=== PATIENT | female | born 1995 | race Caucasian/White ===

== ENCOUNTER 2017-12-14 12:41 | Emergency (ER) | payer OTHER ==
[~2017-12-14 12:41] MED LIST: CEP500 PO; LOR5/325 PO
--- NOTE | 2017-12-14 12:52 | ER Report ---
History and Physical Time Seen By MD: 12:50 Hx. of Stated Complaint: PATIENT HAS BEEN HAVING ABDOMINAL CRAMPING FOR THE LAST WEEK. HPI/ROS CHIEF COMPLAINT: Abdominal cramping HISTORY OF PRESENT ILLNESS: This is a 22-year-old female who presents to the emergency department for generalized abdominal cramping. Patient states that about 5 days ago she developed some abdominal cramps in addition to this she developed diarrhea with some nausea. Patient also states that the cramping and intensity of the diarrhea has increased over the last several days. She was evaluated by an urgent care in [place], they did a basic workup, told patient there was no "white count for urinary infection". The patient was instructed to continue to monitor and if the pain and intensity seems to increase then go to the emergency department for further evaluation and consideration of a CT of the abdomen. Patient denies blood in the stool or infrequent emesis. Patient denies fevers or chills, no visual changes, no headaches. REVIEW OF SYSTEMS: Constitutional: No fever, no chills. Eyes: No discharge. ENT: No sore throat. Cardiovascular: No chest pain, no palpitations. Respiratory: No cough, no shortness of breath. Gastrointestinal: As above. Genitourinary: No hematuria. Musculoskeletal: No back pain. Skin: No rashes. Neurological: No headache. Allergies: Coded Allergies: No Known Drug Allergies (Unverified , 12/14/17) Home Meds Active Scripts Ondansetron (ZOFRAN ODT) 4 Mg Tab.rapdis, 4 MG PO Q6H Y for NAUSEA/VOMITING, # 20 TAB.GALINA Prov:FISH DALY [facility]- 12/14/17 Phenobarb/Hyoscy/Atropine/Scop ( TABLET) 16.2 Mg Tablet, 16.2 MG PO Q6- 8H Y for prn, #12 TAB 0 Refills Prov:FISH DALY [facility]- 12/14/17 Reported Medications Sertraline Hcl (ZOLOFT) 100 Mg Tablet, 1 TAB PO QDAY, TAB 12/14/17 Bupropion Hcl (WELLBUTRIN XL) 150 Mg Tab.er.24h, 150 MG PO QDAY, TAB 12/14/17 Cephalexin Monohydrate (Keflex) 500 Mg Cap, 500 MG PO QID, #12 0 Refills 02/07/11 Acetaminophen/Hydrocodone (Lortab 5/325 Mg) 5 Mg/325 Mg Tab, 1 TAB PO Q4-6H Y, # 40 0 Refills 02/07/11 Past Medical/Surgical History Patient has a past medical and surgical history of depression and anxiety. Reviewed Nurses Notes: Yes Constitutional Vital Sign - Last 24 Hours 12/14/17 12/14/17 12/14/17 12/14/17 12:46 13:11 13:13 13:14 Temp 99.3 Pulse 78 75 Resp 20 B/P (MAP) 115/81 111/73 (86) 112/67 (82) Pulse Ox 96 96 O2 Delivery Room Air 12/14/17 12/14/17 12/14/17 12/14/17 13:30 13:41 14:00 14:11 Pulse 79 84 B/P (MAP) 104/48 (66) 100/55 (70) Pulse Ox 96 96 12/14/17 12/14/17 14:30 14:35 Pulse 72 B/P (MAP) 98/51 (67) Pulse Ox 95 Intake and Output 12/14/17 12/14/17 12/15/17 14:59 22:59 06:59 Intake Total 2000 ml Balance 2000 ml Physical Exam General Appearance: The patient is alert, has no immediate need for airway protection and no signs of toxicity, eyes closed appears uncomfortable. Eyes: Pupils equal and round no pallor or injection. ENT, Mouth: Mucous membranes are dry. Left anterior cervical chain lymphadenopathy. Tympanic membranes intact, landmarks noted, pearly ulloa bilaterally. Respiratory: There are no retractions, lungs are clear to auscultation. Cardiovascular: Regular rate and rhythm, no murmurs, clicks or rubs. Gastrointestinal: Abdomen is soft and generalized mild tenderness with palpation, no masses, hypoactive bowel sounds. Neurological: Alert and oriented 4. Moving all extremities. Following all commands. No focal neuro deficits. Skin: Warm and dry, no rashes. Musculoskeletal: Neck is supple non tender. Extremities are nontender, nonswollen and have full range of motion. DIFFERENTIAL DIAGNOSIS: After history and physical exam differential diagnosis for abdominal pain in a female including but not limited to ovarian cyst, pelvic inflammatory disease, ovarian torsion, gastroenteritis, urinary tract infection, and appendicitis. Medical Decision Making Data Points Result Diagram: 12/14/17 1305 12/14/17 1305 Laboratory Hematology Test 12/14/17 12:45 12/14/17 13:05 Urine Color Yellow Urine Clarity Cloudy Urine pH 5.0 pH (4.8-9.5) Urine Specific [place] 1.017 Urine Protein Negative mg/dL (NEGATIVE) Urine Glucose (UA) Negative mg/dL (NEGATIVE) Urine Ketones Trace mg/dL (NEGATIVE) Urine Blood Negative (NEGATIVE) Urine Nitrite Negative (NEGATIVE) Urine Bilirubin Negative (NEGATIVE) Urine Urobilinogen Negative mg/dL (0.2-1.9) Urine Leukocyte Esterase Negative (NEGATIVE) Urine RBC 1 /HPF (0-2/HPF) Urine WBC 5 /HPF (0-5/HPF) Urine Squamous Epithelial Cells Many /LPF (</=FEW) Urine Bacteria Negative /HPF (NONE-FEW) Urine Mucus Few /HPF (NONE-FEW) Red Blood Count 5.25 M/uL (4.17-5.56) Mean Corpuscular Volume 86.9 fL (80.0-96.0) Mean Corpuscular Hemoglobin 30.2 pg (26.0-33.0) Mean Corpuscular Hemoglobin Concent 34.7 g/dL (32.0-36.0) Red Cell Distribution Width 12.7 % (11.5-14.5) Mean Platelet Volume 7.9 fL (7.2-11.1) Neutrophils (%) (Auto) 66.5 % (39.4-72.5) Lymphocytes (%) (Auto) 22.0 % (17.6-49.6) Monocytes (%) (Auto) 11.0 % (4.1-12.4) Eosinophils (%) (Auto) 0.0 % (0.4-6.7) Basophils (%) (Auto) 0.5 % (0.3-1.4) Nucleated RBC Relative Count (auto) 0.1 /100WBC Neutrophils # (Auto) 2.5 K/uL (2.0-7.4) Lymphocytes # (Auto) 0.8 K/uL (1.3-3.6) Monocytes # (Auto) 0.4 K/uL (0.3-1.0) Eosinophils # (Auto) 0.0 K/uL (0.0-0.5) Basophils # (Auto) 0.0 K/uL (0.0-0.1) Nucleated RBC Absolute Count (auto) 0.00 K/uL Sodium Level 140 mmol/L (137-145) Potassium Level 3.8 mmol/L (3.5-5.0) Chloride Level 103 mmol/L (98-107) Carbon Dioxide Level 23 mmol/L (22-31) Blood Urea Nitrogen 8 mg/dl (7-18) Creatinine 0.90 mg/dl (0.52-1.04) Glomerular Filtration Rate Calc > 60.0 Random Glucose 91 mg/dl (75-110) Calcium Level 9.0 mg/dl (8.4-10.2) Total Bilirubin 0.3 mg/dl (0.2-1.3) Aspartate Amino Transf (AST/SGOT) 23 U/L (0-35) Alanine Aminotransferase (ALT/SGPT) 27 U/L (0-56) Alkaline Phosphatase 58 U/L (0-126) Total Protein 7.5 gm/dl (6.3-8.2) Albumin 4.2 g/dl (3.5-5.0) Lipase 108 U/L (23-300) Human Chorionic Gonadotropin, Qual Negative (NEGATIVE) Chemistry Test 12/14/17 12:45 12/14/17 13:05 Urine Color Yellow Urine Clarity Cloudy Urine pH 5.0 pH (4.8-9.5) Urine Specific [place] 1.017 Urine Protein Negative mg/dL (NEGATIVE) Urine Glucose (UA) Negative mg/dL (NEGATIVE) Urine Ketones Trace mg/dL (NEGATIVE) Urine Blood Negative (NEGATIVE) Urine Nitrite Negative (NEGATIVE) Urine Bilirubin Negative (NEGATIVE) Urine Urobilinogen Negative mg/dL (0.2-1.9) Urine Leukocyte Esterase Negative (NEGATIVE) Urine RBC 1 /HPF (0-2/HPF) Urine WBC 5 /HPF (0-5/HPF) Urine Squamous Epithelial Cells Many /LPF (</=FEW) Urine Bacteria Negative /HPF (NONE-FEW) Urine Mucus Few /HPF (NONE-FEW) White Blood Count 3.7 k/uL (4.5-11.0) Red Blood Count 5.25 M/uL (4.17-5.56) Hemoglobin 15.8 g/dL (12.0-16.0) Hematocrit 45.6 % (34.0-47.0) Mean Corpuscular Volume 86.9 fL (80.0-96.0) Mean Corpuscular Hemoglobin 30.2 pg (26.0-33.0) Mean Corpuscular Hemoglobin Concent 34.7 g/dL (32.0-36.0) Red Cell Distribution Width 12.7 % (11.5-14.5) Platelet Count 173 K/uL (150-450) Mean Platelet Volume 7.9 fL (7.2-11.1) Neutrophils (%) (Auto) 66.5 % (39.4-72.5) Lymphocytes (%) (Auto) 22.0 % (17.6-49.6) Monocytes (%) (Auto) 11.0 % (4.1-12.4) Eosinophils (%) (Auto) 0.0 % (0.4-6.7) Basophils (%) (Auto) 0.5 % (0.3-1.4) Nucleated RBC Relative Count (auto) 0.1 /100WBC Neutrophils # (Auto) 2.5 K/uL (2.0-7.4) Lymphocytes # (Auto) 0.8 K/uL (1.3-3.6) Monocytes # (Auto) 0.4 K/uL (0.3-1.0) Eosinophils # (Auto) 0.0 K/uL (0.0-0.5) Basophils # (Auto) 0.0 K/uL (0.0-0.1) Nucleated RBC Absolute Count (auto) 0.00 K/uL Glomerular Filtration Rate Calc > 60.0 Calcium Level 9.0 mg/dl (8.4-10.2) Total Bilirubin 0.3 mg/dl (0.2-1.3) Aspartate Amino Transf (AST/SGOT) 23 U/L (0-35) Alanine Aminotransferase (ALT/SGPT) 27 U/L (0-56) Alkaline Phosphatase 58 U/L (0-126) Total Protein 7.5 gm/dl (6.3-8.2) Albumin 4.2 g/dl (3.5-5.0) Lipase 108 U/L (23-300) Human Chorionic Gonadotropin, Qual Negative (NEGATIVE) Urinalysis Test 12/14/17 12:45 Urine Color Yellow Urine Clarity Cloudy Urine pH 5.0 pH (4.8-9.5) Urine Specific [place] 1.017 Urine Protein Negative mg/dL (NEGATIVE) Urine Glucose (UA) Negative mg/dL (NEGATIVE) Urine Ketones Trace mg/dL (NEGATIVE) Urine Blood Negative (NEGATIVE) Urine Nitrite Negative (NEGATIVE) Urine Bilirubin Negative (NEGATIVE) Urine Urobilinogen Negative mg/dL (0.2-1.9) Urine Leukocyte Esterase Negative (NEGATIVE) Urine RBC 1 /HPF (0-2/HPF) Urine WBC 5 /HPF (0-5/HPF) Urine Squamous Epithelial Cells Many /LPF (</=FEW) Urine Bacteria Negative /HPF (NONE-FEW) Urine Mucus Few /HPF (NONE-FEW) ED Course/Re-evaluation Clinical Indication for ER IV: Hydration, IV Access ED Course The patient was admitted to a room. A history physical were obtained. Differential diagnoses were considered. An IV was started. A CBC, CMP, lipase and UA were obtained. A 1 L normal saline bolus was given 2, 40 mg IV Protonix , 4 mg IV Zofran.GI cocktail. CBC white count of 3.7 otherwise unremarkable, chemistry unremarkable negative hCG negative urine. I did review the results with the patient and did tell her that this is likely a gastroenteritis, patient did state that she has improved pain after the fluids and the Protonix and Zofran as well as a GI cocktail. I did to the patient extensively about a CT scan of the abdomen and pelvis, at this time we elected to hold off on the CT. I was unable to collect stool samples here however I did send a prescription home for stool studies. If the patient has not seen any improvement in her symptoms with slowing of the diarrhea and the next 4-6 days the patient will return for reevaluation and consideration of a CT. Patient was in agreement with his chronic care. Patient had no other questions or concerns at this time and was discharged home. Patient was sent home with a prescription for Zofran and , however the pharmacy did call and the is too expensife, the prescription was changed to bentyl. 12/14/2017 1:58:02 pm I did speak with patient regarding her laboratory studies and UA did tell her that these are unremarkable and that we can try another liter of fluid and a GI cocktail and if no stools collected in the ER we can send her home with a collection kit. Patient has agreement with this she is also in agreement with waiting on the CT scan, if there is no improvement in the next 4-6 days and she will return for any consideration of CT. Decision to Disposition Date: Dec 14, 2017 Decision to Disposition Time: 14:49 Depart Departure Latest Vital Signs Vital Signs Date Time Temp Pulse Resp B/P (MAP) Pulse Ox O2 Delivery O2 Flow Rate FiO2 12/14/17 14:35 72 95 12/14/17 14:30 98/51 (67) 12/14/17 12:46 99.3 20 Room Air Impression: Primary Impression: Gastroenteritis Condition: Improved Disposition: HOME OR SELF-CARE New Scripts Ondansetron (ZOFRAN ODT) 4 Mg Tab.rapdis 4 MG PO Q6H Y for NAUSEA/VOMITING, #20 TAB.GALINA Prov: FISH DALYP- 12/14/17 Phenobarb/Hyoscy/Atropine/Scop ( TABLET) 16.2 Mg Tablet 16.2 MG PO Q6-8H Y for prn, #12 TAB 0 Refills Prov: FISH DALY [employer]- 12/14/17 Departure Forms: ER Transition Record, Medications Reconciliation, Off Work/ School Form, School or Work Release?: Work Number of days to be released: 2 Patient Portal Information Patient Instructions: Gastroenteritis (ED) Additional Instructions: Drink plenty of fluids. Get plenty of rest. Take the medications as prescribed. If you collect a stool sample please return to the admitting area and tell them you have a lab sample. If no improvement in 4-6 days them please return to the ED for consideration of a CT scan. If your stool is concerning we will contact you. Return to the ED for any other concerns or worsening symptoms. FISH DALY [employer]-BC Dec 14, 2017 12:52
[2017-12-14] MEDS ORDERED: PANTOPRAZOLE SOD 40 MG IV VIAL IVP ONE (13:00)
[2017-12-14] MEDS ORDERED: NS(*) 0.9% 1000 ML BAG 1,000 ML IV ONE ×2 (13:00→13:50)
[2017-12-14] MEDS ORDERED: ONDANSETRON 4 MG/2 ML VIAL IVP ONE (13:00)
[2017-12-14] MEDS ORDERED: BUPR-472 PO (13:04)
[2017-12-14] MEDS ORDERED: SERT-173 PO (13:04)
[2017-12-14 13:17] LABS: PLATELET COUNT, AUTOMATED 173 K/uL (150-450)
[2017-12-14] MEDS ORDERED: ATRO/SCOPOL/HYOSCY/PB 5 ML ELX PO ONE (13:50)
[2017-12-14] MEDS ORDERED: MAG HYD/AL HYD/SIMETH 30ML UDC PO ONE (13:50)
[2017-12-14] MEDS ORDERED: LIDOCAINE 2% VISC SLN 15ML UDC PO ONE (13:50)
[2017-12-14 14:30] VITALS: BP 98/51
[2017-12-14] MEDS ORDERED: ONDA4TAB PO (14:53)
[2017-12-14] MEDS ORDERED: PHEN16.215 PO (14:53)
== END 2017-12-14 15:10 | disposition home or self-care (01) ==
LOC: ER 12:44
DX: K52.9 Noninfective gastroenteritis and colitis, unspecified (principal)
CPT/HCPCS: 81001; 83690; 84703; 85025; 96361; 96374; 96375; 99284; C9113; J2405; J7030; 82040; 82247; 82310; 82374; 82435; 82565; 82947; 84075; 84132; 84155; 84295; 84450; 84460; 84520

== ENCOUNTER 2018-12-21 15:11 | Day surgery (SDC) | payer OTHER ==
[~2018-12-21 15:11] MED LIST changes: -IOPAMIDOL 76% 100 ML INFUS BTL 100 ML ONE; -IUD; -TRAM-420 PO
[2018-12-21] MEDS ORDERED: IUD (15:33)
--- NOTE | 2018-12-21 15:54 | ER Report ---
History and Physical Time Seen By MD: 15:48 Hx. of Stated Complaint: ABD PAIN STARTED LAST NIGHT, POSSIBLE APPENDICITIS, NAUSEA HPI/ROS CHIEF COMPLAINT: Abdominal pain HISTORY OF PRESENT ILLNESS: This is a 23-year-old female presents to emergency department for abdominal pain. Patient states that last when she developed some right sided abdominal pain, increasing over the course of today, went to urgent care, an outpatient CT scan concerning for possible appendicitis. Patient was sent to the emergency department for further evaluation. Patient was seen by Dr. Shannon. The patient had no other concerns at this time. No fevers. No chills. No chest pain or shortness breath. REVIEW OF SYSTEMS: Respiratory: No cough, no dyspnea. Cardiovascular: No chest pain, no palpitations. Gastrointestinal: As above. Musculoskeletal: No back pain. Allergies: Coded Allergies: cephalexin (Verified Allergy, Intermediate, SWELLING, 12/21/18) Home Meds Reported Medications Tramadol Hcl (TRAMADOL HCL) 50 Mg Tablet, 50 MG PO Q6 for PAIN, #30 TAB 12/21/18 [Iud] No Conflict Check 12/21/18 Discontinued Reported Medications Tramadol Hcl (TRAMADOL HCL) 50 Mg Tablet, 50 MG PO Q6 for PAIN, #30 TAB 12/21/18 Tramadol Hcl (TRAMADOL HCL) 50 Mg Tablet, 50 MG PO Q6 for pain, #30 TAB 12/21/18 Sertraline Hcl (ZOLOFT) 100 Mg Tablet, 1 TAB PO QDAY, TAB 12/14/17 Bupropion Hcl (WELLBUTRIN XL) 150 Mg Tab.er.24h, 150 MG PO QDAY, TAB 12/14/17 Cephalexin Monohydrate (Keflex) 500 Mg Cap, 500 MG PO QID, #12 0 Refills 02/07/11 Acetaminophen/Hydrocodone (Lortab 5/325 Mg) 5 Mg/325 Mg Tab, 1 TAB PO Q4-6H PRN, #40 0 Refills 02/07/11 Discontinued Scripts Ondansetron (ZOFRAN ODT) 4 Mg Tab.rapdis, 4 MG PO Q6H PRN for NAUSEA/VOMITING, #20 TAB.GALINA Prov:FISH DALY [employer] 12/14/17 Phenobarb/Hyoscy/Atropine/Scop ( TABLET) 16.2 Mg Tablet, 16.2 MG PO Q6- 8H PRN for prn, #12 TAB 0 Refills Prov:FISH DALY [employer] 12/14/17 Past Medical/Surgical History The patient has no significant past medical or surgical history. Reviewed Nurses Notes: Yes Constitutional Vital Sign - Last 24 Hours 12/21/18 12/21/18 12/21/18 12/21/18 15:27 15:29 15:30 15:45 Temp 98.3 Pulse 64 65 67 Resp 14 B/P (MAP) 118/74 (89) 118/74 112/74 (87) Pulse Ox 98 98 100 O2 Delivery Room Air 12/21/18 16:00 Pulse 63 B/P (MAP) 111/73 (86) Pulse Ox 100 Physical Exam General Appearance: The patient is alert, has no immediate need for airway protection and no current signs of toxicity. Eyes: Pupils equal and round no injection. Respiratory: Chest is non tender, lungs are clear to auscultation. Cardiac: regular rate and rhythm. Gastrointestinal: Abdomen is soft left lower and right lower tenderness, no masses, bowel sounds normal. Musculoskeletal: Neck: Neck is supple and non tender. Extremities have full range of motion and are non tender. Skin: No rashes or lesions. DIFFERENTIAL DIAGNOSIS: After history and physical exam differential diagnosis was considered for abdominal pain in a female including but not limited to ovarian cyst, pelvic inflammatory disease, ovarian torsion, urinary tract infection, and appendicitis. Medical Decision Making Data Points Laboratory Hematology Test 12/21/18 11:59 Human Chorionic Gonadotropin, Qual Negative (NEGATIVE) Chemistry Test 12/21/18 11:59 Human Chorionic Gonadotropin, Qual Negative (NEGATIVE) ED Course/Re-evaluation ED Course 12/21/2018 4:15:34 pm The patient was seen by Dr. Shannon, she is taking the patient to surgery for appendicitis. Decision to Disposition Date: Dec 21, 2018 Decision to Disposition Time: 16:15 Depart Departure Latest Vital Signs Vital Signs Date Time Temp Pulse Resp B/P (MAP) Pulse Ox O2 Delivery O2 Flow Rate FiO2 12/21/18 16:00 63 111/73 (86) 100 12/21/18 15:29 98.3 14 Room Air Impression: Primary Impression: Appendicitis Condition: Improved Disposition: ADMIT FROM ER TO OR Referrals: RODRIGO REYNOSO (PCP) Problem Qualifiers Primary Impression: Appendicitis Appendicitis type: acute appendicitis Acute appendicitis type: with localized peritonitis Appendicitis gangrene presence: without gangrene Appendicitis perforation presence: without perforation Appendicitis abscess presence: without abscess Qualified Codes: K35.30 - Acute appendicitis with localized peritonitis, without perforation or gangrene FISH DALY-SUDHEER Dec 21, 2018 15:54
[2018-12-21] MEDS ORDERED: LIDOCAINE MPF 1% 5 ML VIAL ONE (16:11)
[2018-12-21] MEDS ORDERED: PROPOFOL EMUL(*) 10MG/ML 20 ML 20 ML ONE (16:11)
[2018-12-21] MEDS ORDERED: fentaNYL CITR 250 MCG/5 ML AMP ONE (16:11)
[2018-12-21] MEDS ORDERED: LEVOFLOXACIN/D5W*500 MG/100 ML 100 ML IVPB ONE (16:20)
[2018-12-21] MEDS ORDERED: metroNIDAZOLE* 500MG/100ML BAG 100 ML IVPB ONE (16:20)
[2018-12-21] MEDS ORDERED: NORMOSOL R SOLN(*) 1000 ML BAG 1,000 ML IV ONE (16:22)
[2018-12-21 16:30] VITALS: BP 101/62
[2018-12-21] MEDS ORDERED: BUPIVACAIN 0.25% INJ 50ML VIAL ONE (16:36)
[2018-12-21] MEDS ORDERED: DEXAMETHASONE SOD 4 MG/ML VIAL ONE (17:08)
[2018-12-21] MEDS ORDERED: ONDANSETRON 4 MG/2 ML VIAL ONE ×2 (17:09→20:25)
[2018-12-21] MEDS ORDERED: KETOROLAC 30 MG/ML VIAL ONE ×2 (17:09→17:50)
[2018-12-21] MEDS ORDERED: MEPERIDINE HCL 50 MG/ML SDV 50 MG/ML VIAL ONE (18:23)
--- NOTE | 2018-12-21 18:24 | Post Operative Progress Note ---
Post Operative Progress Note Date: Dec 21, 2018 Time: 18:19 Surgeon: Anastasia Shannon MD Placement Secretary: none Anesthesia: GETA Pre-Op Diagnosis: acute appendicitis Post-Op Diagnosis: same Findings: early acute inflammation Procedure(s): laparoscopic appendectomy Specimen Removed:(May be N/A): appendix Complications: none Total Tourniquet Time: NA Splint: NA Fluids: see anesthesia record Estimated Blood Loss: < 10 ml Date OP Note Dictated: Dec 21, 2018 Time OP Note Dictated: 18:20 ([id number] dictation number) ANASTASIA SHANNON MD Dec 21, 2018 18:24
[2018-12-21] MEDS ORDERED: fentaNYL CITR 100 MCG/2 ML AMP ONE ×2 (18:46→20:53)
[2018-12-21] MEDS ORDERED: TRAM-420 PO ×3 (18:54→18:59)
[2018-12-21] MEDS ORDERED: traMADol 50 MG TAB ONE (19:45)
--- NOTE | 2018-12-22 00:41 | OPERATIVE REPORT 1 ---
EVENT DATE: December 21, 2018 SURGEON: Jesús Shannon MD, [facility] ANESTHESIOLOGIST: Higinio Jones MD ANESTHESIA: General. PREOPERATIVE DIAGNOSIS Acute appendicitis. POSTOPERATIVE DIAGNOSIS Acute appendicitis. PROCEDURE PERFORMED Laparoscopic appendectomy. WOUND CLASS 2. FINDINGS Acute early suppurative appendicitis. No evidence of perforation. DESCRIPTION OF PROCEDURE On 12/21/18, patient was brought to the operating room and placed in the supine position. Appropriate lines and monitors were placed. Patient was induced and intubated under general anesthesia without difficulty. She was then prepped and draped in the usual sterile manner. Infraumbilical incision was made to establish pneumoperitoneum using an open technique. Skin, subcutaneous and fascial tissues were divided under direct vision using sharp dissection. Two stay sutures of #1 Vicryl were placed in the fascia. Mikki trocar was placed and pneumoperitoneum was established. Under direct vision, two additional trocars were placed, a 5 mm in the lower midline and a 10 mm in the right upper quadrant. The patient was placed in Trendelenburg position. The appendix was dissected free from its position within the pelvis. A moderate amount of clear serous fluid was evacuated from the pelvis. The mesoappendix was opened using blunt dissection. The laparoscopic bowel stapler was used to divide the appendix immediately adjacent to the cecal wall. The mesoappendix was divided with a vascular load of the laparoscopic stapler. The specimen was placed in an Endo Pouch and removed from the abdominal cavity. The mesoappendix required several Ligaclips to assure hemostasis. The operative field was irrigated copiously and hemostasis was intact. The effluent fluid was clear. The right upper quadrant trocar site was closed using the Mars-Marylin device with a #1 Vicryl. The trocars were removed under direct vision, and all sites were hemostatic. Pneumoperitoneum was evacuated. Fascia at the infraumbilical site was closed with the two stay sutures. Wounds were infiltrated with a total of 40 mL of 0.25% Marcaine. Skin edge was reapproximated with a running subcuticular 4-0 PDS. Wounds were then dressed with Mastisol, Steri-Strips, and dry sterile gauze. Patient was then extubated and taken to the recovery room in stable condition. She tolerated the operative procedure well. Estimated blood loss was minimal. Final sponge and needle counts were correct x2. MTDD
== END 2018-12-21 22:00 | disposition home or self-care (01) ==
LOC: ER 15:32 → OR 16:05 → CMPBEDREQ 16:23 → OR 22:00
PROVIDERS: ATTEND Surgery
DX: K35.30 Acute appendicitis with localized peritonitis, without perforation or gangrene (principal)
CPT/HCPCS: 44970; 84703; 88304; 99284; J1100; J1956; J2001; J2175; J2405; J2704; J3010; J3490; J1885

== ENCOUNTER → 2018-12-21 | Outpatient (REF) | payer OTHER ==
[~2018-12-21] MED LIST changes: +BUPR-472 PO; +IUD; +ONDA4TAB PO; +PHEN16.215 PO; +SERT-173 PO; +TRAM-420 PO
[2018-12-21 12:25] LABS: PLATELET COUNT, AUTOMATED 244 K/uL (150-450)
== END ==
PROVIDERS: ATTEND Nurse Practitioner Family
DX: R10.9 Unspecified abdominal pain (principal)
CPT/HCPCS: 82040; 82150; 82247; 82310; 82374; 82435; 82565; 82947; 83690; 84075; 84132; 84155; 84295; 84450; 84460; 84520; 85025; 86677

== ENCOUNTER → 2018-12-21 | Outpatient (CLI) | payer OTHER ==
[~2018-12-21] MED LIST changes: +IOPAMIDOL 76% 100 ML INFUS BTL 100 ML ONE
--- NOTE | 2018-12-21 14:54 | RADIOLOGY IMAGING REPORT ---
[place] [facility] [place] NAME: Magnolia Joyce : 1995 MR: [id number] V: [id number] EXAM DATE: ORDERING PHYSICIAN: TO MANTILLA TECHNOLOGIST: Location: [facility] - [place], [place] Patient: Magnolia Joyce : 1995 Visit/Account:[id number] Date of Sevice: 12/21/2018 COMPUTED TOMOGRAPHY OF THE Abdomen and Pelvis with CONTRAST INDICATION: Lower abdominal pain. TECHNIQUE: Contiguous axial 3.[address] images were obtained through the abdomen and pelvis after the administration of 75 mL Isovue-370. Coronal and sagittal reformatted images were submitted. COMPARISON: None available.. FINDINGS: Lung bases: The lung bases are clear Liver and hepatic vasculature: No focal liver lesion. Minimal fatty infiltration adjacent to the fa lciform. Gallbladder and bile ducts: Normal gallbladder. Spleen: Normal spleen. Pancreas: Normal pancreas. Adrenals: Normal Kidneys, ureters and bladder: Symmetric enhancement. No hydronephrosis or obstruction. Normal-appe aring bladder. Retroperitoneum and aorta: Normal caliber aorta. GI tract, mesentery and peritoneum: The appendix is dilated measuring approximately 1 cm at the base with an edematous wall. The appendiceal tip extends posteriorly in the pelvis terminating adjacent t o the uterus. There is no definite perforation. Mild surrounding inflammatory stranding. Uterus and adnexa: An IUD is centrally positioned within the uterine fundus. A small volume of fluid in the cul-de-sac measures low to intermediate attenuation but is unorganized. There are multiple p rominent follicles of both ovaries. Bones and soft tissues: No acute osseous abnormality. IMPRESSION: 1. Suspicious for early appendicitis. 2. There are multiple prominent follicles at both ovaries with a small volume of fluid in the cul-de -sac. Results were called to Dr. TO MANTILLA at 12/21/2018 2:50 PM. One of the following dose optimization techniques was utilized in the performance of this exam: Autom ated exposure control; adjustment of the mA and/or kV according to the patient's size; or use of an i terative reconstruction technique. Specific details can be referenced in the facility's radiology C T exam operational policy. Report Dictated By: Lovely Neri MD at 12/21/2018 2:35 PM Report E-Signed By: Lovely Neri MD at 12/21/2018 2:50 PM WSN:[id number]
== END ==
LOC: CT 13:39
PROVIDERS: ATTEND Nurse Practitioner Family
DX: K38.0 Hyperplasia of appendix (principal)
CPT/HCPCS: 74177; Q9967